=== PATIENT | male | born 1960 | race Caucasian/White ===

== ENCOUNTER 2022-03-15 09:04 | Outpatient (CLI) | payer BC | END 2022-03-15 09:05 | disposition home or self-care (01) | LOC: SCSMRI 09:04 | PROVIDERS: ATTEND Family Medicine | DX: M25.561 Pain in right knee (principal); G89.29 Other chronic pain; I10 Essential (primary) hypertension; M25.461 Effusion, right knee; R60.0 Localized edema; S83.271A Complex tear of lateral meniscus, current injury, right knee, initial encounter ==

== ENCOUNTER 2024-10-30 10:11 | Inpatient (IN) | payer BC ==
[2024-10-30 11:04] VITALS: BMI 30.3
[2024-10-30] MEDS ORDERED: Senokot S 8.6-50 MG TAB PO PRN (11:37)
[2024-10-30] MEDS ORDERED: Acetaminophen 325 MG TAB PO PRN (11:37)
[2024-10-30] MEDS ORDERED: Ondansetron PF 4 MG/2 ML Vial IVP PRN (11:37)
[2024-10-30] MEDS ORDERED: Melatonin 3 MG TAB PO PRN (11:37)
[2024-10-30] MEDS ORDERED: Nitroglycerin 0.4 MG TAB (25 Tab Bottle) SL PRN (11:40)
[2024-10-30] MEDS ORDERED: Iopamidol 370 76% 100 ML VIAL ONE (15:30)
[2024-10-31 04:54] LABS: #Basophils Less than 0.03 10x3/uL (0.0-0.2); #Eosinophils 0.08 10x3/uL (0.0-0.7); #Monocytes 0.45 10x3/uL (0.11-0.59); #Neutrophils 2.16 10x3/uL (1.40-6.50); %Basophils 0.4 % (0.0-1.0); %Eosinophils 1.7 % (0.0-10.0); %Lymphocytes 41.2 % (21.0-51.0); %Monocytes 9.8 % (0.0-10.0); %Neutrophils 46.9 % (42.0-75.0); Hematocrit 43.2 % (42.0-52.0); Hemoglobin 14.3 g/dL (14.0-18.0); Mean Corpuscular Hemoglobin 29.5 pg (27.0-31.0); Mean Corpuscular Volume 89.1 fL (78.0-98.0); Platelet Count 114 10x3/uL (130-400); Red Blood Cell (RBC) Count 4.85 mill/uL (4.70-6.10); White Blood Cell (WBC) Count 4.61 10x3/uL (4.8-10.8)
[2024-10-31 05:23] LABS: Anion Gap 10 mmol/L (10-20); BUN (Urea Nitrogen) 13 mg/dL (8.4-25.7); Calc. Creatinine Clearance 121 mL/min (70-130); Calcium 8.2 mg/dL (7.8-10.44); Carbon Dioxide 27 mmol/L (23-31); Cardiac Risk 5.4 (Less than 4.5); Chloride 107 mmol/L (98-107); Cholesterol 158 mg/dl (< 200 Desired); Glucose 99 mg/dL (80-115); HDL Cholesterol 29 mg/dL (>60 Neg Risk); LDL Cholesterol, Calculated 85 mg/dL; Potassium 4.2 mmol/L (3.5-5.1); Sodium 140 mmol/L (136-145); Triglycerides 221 mg/dL (Less than 150)
[2024-10-31] MEDS: Aspirin Chewable 81 MG TAB PO SCH (05:42)
[2024-10-31] MEDS ORDERED: Communication Order-Pharmacy FS SCH (06:00)
[2024-10-31] MEDS ORDERED: Lidocaine 1% (PF) 30 ML VIAL ONE (07:01)
[2024-10-31] MEDS ORDERED: Heparin 10,000 UNITS/ 10 ML VIAL ONE (07:01)
[2024-10-31] MEDS ORDERED: PHENYLEPHRINE-NS 100 MCG/ML 10 ML SYRINGE ONE (07:02)
[2024-10-31] MEDS ORDERED: Nitroglycerin 50 MG/250 ML BOT 0 ML ONE (07:02)
[2024-10-31] MEDS ORDERED: EPINEPHrine 1 MG/10 ML Abboject SYRINGE ONE (07:02)
[2024-10-31] MEDS ORDERED: Nitroglycerin 0.4 MG TAB (25 Tab Bottle) SL PRN (09:21)
[2024-10-31] MEDS ORDERED: Iopamidol 370 76% 100 ML VIAL ONE (11:50)
[2024-10-31 12:05] VITALS: BP 133/74; TEMP 97.7
[2024-10-31] MEDS ORDERED: Rosuvastatin 5 MG TAB PO SCH (21:00)
[2024-10-31] MEDS ORDERED: Rosuvastatin 10 MG TAB PO SCH (21:00)
[2024-11-01] MEDS ORDERED: Ezetimibe 10 MG TAB PO SCH (09:00)
[2024-11-01] MEDS ORDERED: Sacubitril 24MG/Valsartan 26 MG TAB PO SCH (09:00)
[2024-11-01] MEDS ORDERED: Losartan 25 MG TAB PO SCH (09:00)
== END 2024-10-31 15:15 | disposition home or self-care (01) | DRG 281 ==
LOC: 2NO 10:11 → INTOOBSV 10:11 → OBSVTOIN 10-31 09:41
PROVIDERS: ADMIT Internal Medicine; ATTEND Emergency Medicine
PROC: B2111ZZ Fluoroscopy of Multiple Coronary Arteries using Low Osmolar Contrast (ICD-10-PCS; principal; 2024-10-31)
DX: I21.4 Non-ST elevation (NSTEMI) myocardial infarction (principal); I42.9 Cardiomyopathy, unspecified; I44.7 Left bundle-branch block, unspecified; I10 Essential (primary) hypertension; E87.5 Hyperkalemia; F10.90 Alcohol use, unspecified, uncomplicated; I25.10 Atherosclerotic heart disease of native coronary artery without angina pectoris
CPT/HCPCS: 36415; 71275; 74174; 80048; 80061; 85025; 93306; 93454; 99152; 99153; J0165; J0461; J1644; J2250; J3010; J7030; Q9967

== ENCOUNTER 2025-01-31 08:06 | Outpatient (CLI) | payer BC | END 2025-01-31 08:07 | disposition home or self-care (01) | LOC: SCSMRI 08:06 | PROVIDERS: ATTEND Orthopaedic Surgery | DX: M75.102 Unspecified rotator cuff tear or rupture of left shoulder, not specified as traumatic (principal); M67.814 Other specified disorders of tendon, left shoulder; M19.012 Primary osteoarthritis, left shoulder; S43.402A Unspecified sprain of left shoulder joint, initial encounter ==